=== PATIENT | female | born 1975 | race Caucasian/White ===

== ENCOUNTER 2025-07-26 06:12 | Day surgery (SDC) | payer BC, SELFPAY | END 2025-07-26 10:23 | disposition home or self-care (01) | LOC: GI 06:12 | PROVIDERS: ATTENDING PHYSICIAN Internal Medicine | DX: Z12.11 Encounter for screening for malignant neoplasm of colon (principal); K64.8 Other hemorrhoids; K44.9 Diaphragmatic hernia without obstruction or gangrene; K31.7 Polyp of stomach and duodenum; R12 Heartburn | CPT/HCPCS: 43239; G0121; 88305; 88342 ==